=== PATIENT | male | born 1965 | race African-American/Black ===

== ENCOUNTER 2017-11-05 23:15 | Emergency (ER) | payer OTHER ==
[~2017-11-05] VITALS: Ht 180.3 cm; Wt 105.7 kg
--- NOTE | ~2017-11-05 | EKG ---
[place] [address] [facility] [employer] [place] [address] ELECTROCARDIOGRAM REPORT Name: YANIRA FARR [facility] [id number] Admission: 11/05/17 Attend Phys: Discharge: 11/06/17 Date of : 63 Report #: [id number] THIS REPORT FOR: //name// [facility] ED Test Date: 2017-11-05 Test Time: 23:28:43 Pat Name: YANIRA FARR Department: Room: 170 Gender: M [employer]istline [employer]: IVIS : 1965 Requested By: Sabino Catalan Order Number: [id number] MD: Aniket Thornton Measurements Intervals [place] Rate: 65 P: 30 IL: 198 QRS: -36 QRSD: 114 T: -24 QT: 413 QTc: 430 Interpretive Statements Sinus rhythm Inferior infarct, age indeterminate ST elevation, cannot rule out anterior injury No previous ECG available for comparison Electronically Signed On 11-08-2017 8:16:48 [employer] by Aniket Thornton [email or web address] <ELECTRONICALLY SIGNED> By: Aniket Thornton MD, [facility] 11/08/17 0816 [id number] Ankiet Thornton MD, FACC /EPI
[~2017-11-05 23:15] MED LIST: CIPROFLOXACIN500 M3 PO; IBUPROFEN 800800 M1 PO; LISINOPRIL40 MG PO; PERCOCET 5-3251 EACH PO
[2017-11-05 23:16] VITALS: BP 159/88
[2017-11-05 23:48] LABS: HEMATOCRIT 48.4 % (42.0-52.0); HEMOGLOBIN 15.8 gm/dL (14.0-18.0); MCH 27.5 pg (26.0-34.0); MCHC 32.7 g/dL (28.0-37.0); MCV 83.9 fL (80.0-100.0); RBC 5.77 mil/uL (4.50-6.00); RDW 14.1 % (10.5-14.5); WBC 13.7 thou/uL (4.0-11.0)
[2017-11-05 23:51] LABS: ANION GAP 11 mmol/L (7-16); BUN 13 mg/dL (7-18); CALCIUM 9.3 mg/dL (8.5-10.1); CHLORIDE 102 mmol/L (98-107); CO2 29 mmol/L (21-32); GLUCOSE 123 mg/dL (74-106); POTASSIUM 3.3 mmol/L (3.5-5.1); SODIUM 142 mmol/L (136-145)
[2017-11-06] LABS: ALBUMIN 4.2 g/dL (3.4-5.0); SGOT 18 U/L (15-37); SGPT 35 U/L (30-65); TOTAL BILIRUBIN 0.6 mg/dL (<0.1-1.0); TOTAL PROTEIN 8.4 g/dL (6.4-8.2); TROPONIN-I < 0.04 ng/mL (<0.06)
[2017-11-06] MEDS ORDERED: HYDRALAZINE 5050 MG PO (00:38)
[2017-11-06] MEDS ORDERED: MEDROL DOSPAK21 TA1 PO (00:39)
[2017-11-06] MEDS ORDERED: COZAAR 50 MG TA50 M2 PO (00:39)
[2017-11-06 00:49] LABS: URINE BILIRUBIN NEGATIVE (Negative); URINE BLOOD 3+ (Negative); URINE CLARITY CLEAR; URINE COLOR YELLOW; URINE GLUCOSE-RANDOM* NEGATIVE (Negative); URINE KETONES NEGATIVE (Negative); URINE LEUKOCYTES-REFLEX NEGATIVE (Negative); URINE NITRITE-REFLEX NEGATIVE (Negative); URINE PROTEIN (DIPSTICK) TRACE (Negative); URINE SPECIFIC GRAVITY >= 1.030 (1.005-1.035); URINE UROBILINOGEN 0.2 E.U./dl (0.2-1.0)
[2017-11-06 00:58] LABS: AMP/METHAMP Negative (Negative); BARBITURATES Negative (Negative); BENZODIAZEPINES Negative (Negative); COCAINE Negative (Negative); METHADONE Negative (Negative); OPIATES Negative (Negative); PCP Negative (Negative)
[2017-11-06 00:59] LABS: BACTERIA-REFLEX 1-9 Few /HPF (None Seen); CASTS None Seen /LPF (None Seen); CRYSTALS None Seen /LPF (None Seen); MUCUS >6 Heavy strn/LPF (None Seen); SQUAMOUS None Seen /LPF (0-3); URINE RBC 3-10 Few /HPF (0-2); URINE WBC-REFLEX None Seen /HPF (0-5); YEAST-REFLEX Present (None Seen)
[2017-11-06 03:03] VITALS: BP 173/105
== END 2017-11-06 03:08 | disposition short-term general hospital (02) ==
LOC: ER 23:15 → EROBS 11-06 01:24 → ER 11-06 03:08
PROVIDERS: Emergency Medicine
DX: I63.9 Cerebral infarction, unspecified (principal); I10 Essential (primary) hypertension; Z87.01 Personal history of pneumonia (recurrent); Z88.1 Allergy status to other antibiotic agents; Z88.5 Allergy status to narcotic agent